=== PATIENT | male | born 1965 | race African-American/Black ===

== ENCOUNTER 2017-04-25 12:27 | Inpatient (IN) ==
[2017-04-25] MEDS ORDERED: DILTIAZEM 50 MG/10 ML VIAL IV ONE (13:09)
[2017-04-25] MEDS ORDERED: DILTIAZEM 50 MG/10 ML VIAL IV STA ×2 (13:10→14:06)
[2017-04-25 13:24] LABS: Basophils % 0.6 % (0.0-0.8); Eosinophils # 0.5 10*3/uL (0.0-0.87); Eosinophils % 7.2 % (0.00-10.9); Hematocrit 37.1 VOL% (42.0-52.0); Hemoglobin 12.3 GM/DL (14.0-18.0); Immature Granulocytes % 0.3 %; Immature Granulocytes Absolute 0.02 #; Lymphocytes # 1.2 10*3/uL (1.4-4.0); Lymphocytes % 16.5 % (21.2-54.2); Mean Corpuscular HGB Conc 33.2 GM/DL (32-36); Mean Corpuscular Hemoglobin 31 PG (27-34); Mean Corpuscular Volume 93.2 FL (87-102); Mean Platelet Volume 10.1 FL (9.6-12.0); Monocytes # 0.5 10*3/uL (0.11-0.8); Monocytes % 6.3 % (1.7-12.7); NRBC # 0.07 10*3/uL; Neutrophils # 4.9 10*3/uL (1.4-7.4); Neutrophils % 69.1 % (38.7-73.9); Platelet Count 150 T/CUMM (130-400); Red Blood Count 3.98 MC/CUMM (3.8-5.5); White Blood Count 7.1 T/CUMM (4-12)
[2017-04-25 13:35] LABS: PT Patient Result 10.7 SECS; Partial Thromboplastin Time 34.8 SECS (0-40)
[2017-04-25 13:43] LABS: Alanine Aminotransferase 36 U/L (16-61); Alkaline Phosphatase 70 U/L (45-117); Aspartate Amino Transferase 29 U/L (0-37); Blood Urea Nitrogen 29 MG/DL (7-18); Calcium 8.8 MG/DL (8.5-10.1); Glucose 105 MG/DL (74-106); Potassium 3.7 MMOL/L (3.5-5.1); Sodium 136 MMOL/L (136-145); Total Protein 9.5 G/DL (6.4-8.3); Troponin I Only 0.043 NG/ML (0.00-0.045)
[2017-04-25] MEDS ORDERED: DILTIAZEM 100 MG VIAL.ADD IV ONE (14:05)
[2017-04-25] MEDS ORDERED: SODIUM CHLORIDE 0.9% 100 ML IV ONE (14:06)
[2017-04-25] MEDS: DILTIAZEM INJ 100 MG in SODIUM CHLORIDE 0.9% 100 ML IV SCH (14:37)
[2017-04-25] MEDS ORDERED: FUROSEMIDE 40 MG/4 ML VIAL IV SCH (17:04)
[2017-04-25] MEDS ORDERED: ONDANSETRON 4 MG/2 ML VIAL IV PRN (17:04)
[2017-04-25] MEDS: DILTIAZEM CD 240 MG CAPSULE PO SCH (18:05)
[2017-04-25] MEDS: CALCITRIOL 0.5 MCG CAPSULE PO SCH (20:46)
[2017-04-26 04:49] LABS: Basophils % 0.8 % (0.0-0.8); Eosinophils # 0.4 10*3/uL (0.0-0.87); Eosinophils % 8.3 % (0.00-10.9); Hematocrit 32.4 VOL% (42.0-52.0); Hemoglobin 10.6 GM/DL (14.0-18.0); Immature Granulocytes % 0.6 %; Immature Granulocytes Absolute 0.03 #; Lymphocytes # 1.1 10*3/uL (1.4-4.0); Lymphocytes % 23.5 % (21.2-54.2); Mean Corpuscular HGB Conc 32.7 GM/DL (32-36); Mean Corpuscular Hemoglobin 31 PG (27-34); Mean Corpuscular Volume 94.7 FL (87-102); Mean Platelet Volume 10.1 FL (9.6-12.0); Monocytes # 0.5 10*3/uL (0.11-0.8); Monocytes % 10.2 % (1.7-12.7); NRBC # 0.02 10*3/uL; Neutrophils # 2.7 10*3/uL (1.4-7.4); Neutrophils % 56.6 % (38.7-73.9); Platelet Count 131 T/CUMM (130-400); Red Blood Count 3.42 MC/CUMM (3.8-5.5); White Blood Count 4.7 T/CUMM (4-12)
[2017-04-26 05:14] LABS: Calcium 7.5 MG/DL (8.5-10.1); Osmolality,Calculated 288.7 MOS/KG (273-304); Potassium 3.9 MMOL/L (3.5-5.1)
[2017-04-26] MEDS: DILTIAZEM CD 240 MG CAPSULE PO SCH (08:13)
[2017-04-26] MEDS: SEVELAMER CARBONATE 800 MG TABLET PO SCH ×3 (08:13→17:38)
[2017-04-26] MEDS: CALCIUM (CARBONATE)/VITAMIN D 600 MG-400 UNIT TABLET PO SCH (08:14)
[2017-04-26] MEDS: MULTIVITAMIN (BEROCCA) TABLET PO SCH (08:14)
[2017-04-26] MEDS: CARVEDILOL 3.125 MG TABLET PO SCH (08:14)
[2017-04-26] MEDS: CALCITRIOL 0.5 MCG CAPSULE PO SCH ×3 (08:14→22:45)
[2017-04-26] MEDS: PANTOPRAZOLE 40 MG TABLET PO SCH (08:14)
[2017-04-26] MEDS: FINASTERIDE 5 MG TABLET PO SCH (08:14)
[2017-04-26] MEDS: ALLOPURINOL 100 MG TABLET PO SCH (08:14)
[2017-04-26] MEDS: MULTIVITAMIN (CENTRUM) TABLET PO SCH (08:14)
[2017-04-26] MEDS: DILTIAZEM INJ 100 MG in SODIUM CHLORIDE 0.9% 100 ML IV SCH (14:36)
[2017-04-27 05:17] LABS: Basophils % 0.5 % (0.0-0.8); Eosinophils # 0.6 10*3/uL (0.0-0.87); Eosinophils % 10.1 % (0.00-10.9); Hematocrit 32.3 VOL% (42.0-52.0); Hemoglobin 10.9 GM/DL (14.0-18.0); Immature Granulocytes % 0.7 %; Immature Granulocytes Absolute 0.04 #; Lymphocytes # 1.5 10*3/uL (1.4-4.0); Lymphocytes % 24.6 % (21.2-54.2); Mean Corpuscular HGB Conc 33.7 GM/DL (32-36); Mean Corpuscular Hemoglobin 32 PG (27-34); Mean Corpuscular Volume 93.9 FL (87-102); Mean Platelet Volume 10.8 FL (9.6-12.0); Monocytes # 0.7 10*3/uL (0.11-0.8); Monocytes % 10.8 % (1.7-12.7); NRBC # 0.02 10*3/uL; Neutrophils # 3.2 10*3/uL (1.4-7.4); Neutrophils % 53.3 % (38.7-73.9); Platelet Count 147 T/CUMM (130-400); Red Blood Count 3.44 MC/CUMM (3.8-5.5); Red Cell Distribution Width 16.9 % (9.3-17.3)
[2017-04-27 05:46] LABS: Calcium 7.9 MG/DL (8.5-10.1); Osmolality,Calculated 287.1 MOS/KG (273-304); Potassium 3.8 MMOL/L (3.5-5.1)
[2017-04-27] MEDS ORDERED: PROMETHAZINE 25 MG/1 ML VIAL IM ONE (07:30)
[2017-04-27] MEDS ORDERED: MEPERIDINE 50 MG/1 ML VIAL IM ONE (07:30)
[2017-04-27] MEDS ORDERED: MIDAZOLAM 2 MG/2 ML VIAL ONE (07:30)
[2017-04-27] MEDS ORDERED: LIDOCAINE 1% 20 ML VIAL MISC INJ ONE (08:00)
[2017-04-27] MEDS ORDERED: LIDOCAINE 2% VISCOUS 100 ML BOTTLE SWISH/SPIT ONE (08:00)
[2017-04-27] MEDS ORDERED: LIDOCAINE 2% 20 ML VIAL RESP TX ONE (08:00)
[2017-04-27] MEDS ORDERED: MIDAZOLAM 2 MG/2 ML VIAL IV ONE (08:00)
[2017-04-27] MEDS: CARVEDILOL 3.125 MG TABLET PO SCH (10:03)
[2017-04-27] MEDS: SEVELAMER CARBONATE 800 MG TABLET PO SCH (10:03)
[2017-04-27] MEDS: DILTIAZEM CD 240 MG CAPSULE PO SCH (10:03)
[2017-04-27] MEDS: MULTIVITAMIN (BEROCCA) TABLET PO SCH (10:03)
[2017-04-27] MEDS: CALCIUM (CARBONATE)/VITAMIN D 600 MG-400 UNIT TABLET PO SCH (10:03)
[2017-04-27] MEDS: FINASTERIDE 5 MG TABLET PO SCH (10:04)
[2017-04-27] MEDS: ALLOPURINOL 100 MG TABLET PO SCH (10:04)
[2017-04-27] MEDS: MULTIVITAMIN (CENTRUM) TABLET PO SCH (10:04)
[2017-04-27] MEDS: PANTOPRAZOLE 40 MG TABLET PO SCH (10:04)
[2017-04-27] MEDS: CALCITRIOL 0.5 MCG CAPSULE PO SCH (10:04)
[2017-04-27 12:12] VITALS: BP 161/105
== END 2017-04-27 12:15 | disposition home or self-care (01) | DRG 308 ==
LOC: N.ED 12:27 → N.EDINP 14:14 → SUATTDRO 14:14 → N.TELES 15:50
PROVIDERS: ADMIT Internal Medicine; ATTEND Internal Medicine Geriatric Medicine

== ENCOUNTER 2017-08-02 21:28 | Inpatient (IN) ==
[2017-08-03] MEDS ORDERED: MORPHINE 2 MG/1 ML SYRINGE IV STA (00:25)
[2017-08-03] MEDS ORDERED: ONDANSETRON 4 MG/2 ML VIAL IV STA (00:25)
[2017-08-03] MEDS ORDERED: ONDANSETRON 4 MG/2 ML VIAL ONE (00:48)
[2017-08-03] MEDS ORDERED: MORPHINE 2 MG/1 ML SYRINGE ONE (00:48)
[2017-08-03 01:30] LABS: Basophils % 0.5 % (0.0-0.8); Eosinophils # 0.6 10*3/uL (0.0-0.87); Eosinophils % 8.2 % (0.00-10.9); Hematocrit 38.8 VOL% (42.0-52.0); Hemoglobin 13.3 GM/DL (14.0-18.0); Immature Granulocytes % 0.3 %; Immature Granulocytes Absolute 0.02 #; Lymphocytes # 1.7 10*3/uL (1.4-4.0); Mean Corpuscular HGB Conc 34.3 GM/DL (32-36); Mean Corpuscular Hemoglobin 32 PG (27-34); Mean Corpuscular Volume 92.4 FL (87-102); Monocytes # 0.7 10*3/uL (0.11-0.8); Monocytes % 9.1 % (1.7-12.7); Neutrophils # 4.3 10*3/uL (1.4-7.4); Neutrophils % 58.9 % (38.7-73.9); Platelet Count 189 T/CUMM (130-400); Red Cell Distribution Width 16.8 % (9.3-17.3); White Blood Count 7.3 T/CUMM (4-12)
[2017-08-03 01:35] LABS: PT Patient Result 10.7 SECS
[2017-08-03] MEDS ORDERED: ALBUTEROL/IPRATROPIUM 3 ML NEB RESP TX STA (01:53)
[2017-08-03 01:56] LABS: Albumin 3.8 G/DL (3.4-5.0); Calcium 7.7 MG/DL (8.5-10.1); Osmolality,Calculated 293.4 MOS/KG (273-304); Total Protein 8.8 G/DL (6.4-8.3); Troponin I Only 0.016 NG/ML (0.00-0.045)
[2017-08-03 02:00] LABS: Potassium 7.2 MMOL/L (3.5-5.1)
[2017-08-03] MEDS ORDERED: CALCIUM CHLORIDE 1,000 MG/10 ML SYRINGE IV STA (02:08)
[2017-08-03] MEDS ORDERED: ALBUTEROL NEB SOLN 5 MG/ML 20 ML/BOTTLE CONT NEB STA (02:09)
[2017-08-03] MEDS ORDERED: SODIUM POLYSTYRENE SULFATE 15 GM/60 ML BOTTLE PO STA (02:09)
[2017-08-03] MEDS ORDERED: CALCIUM CHLORIDE 1,000 MG/10 ML SYRINGE IV ONE (02:48)
[2017-08-03] MEDS ORDERED: SODIUM POLYSTYRENE SULFATE 15 GM/60 ML BOTTLE ONE (02:48)
[2017-08-03] MEDS ORDERED: DEXTROSE 50% 25 GM/50 ML VIAL IV PRN (03:38)
[2017-08-03] MEDS ORDERED: ONDANSETRON 4 MG/2 ML VIAL IV PRN (03:38)
[2017-08-03] MEDS ORDERED: GLUCAGON 1 MG VIAL IM PRN (03:38)
[2017-08-03] MEDS: HEPARIN 5,000 UNIT/1 ML VIAL SUBCUT SCH ×2 (06:20→14:12)
[2017-08-03 06:34] LABS: Calcium 8.3 MG/DL (8.5-10.1); Osmolality,Calculated 295.4 MOS/KG (273-304); Potassium 5.4 MMOL/L (3.5-5.1)
[2017-08-03] MEDS: INSULIN REGULAR 100 UNIT/ML SUBCUT SCH ×3 (07:32→16:47)
[2017-08-03] MEDS ORDERED: PANTOPRAZOLE 40 MG TABLET PO SCH (09:00)
[2017-08-03] MEDS ORDERED: DILTIAZEM CD 240 MG CAPSULE PO SCH (13:30)
[2017-08-03] MEDS ORDERED: CARVEDILOL 3.125 MG TABLET PO SCH (13:30)
[2017-08-03 16:47] VITALS: BP 128/93
[2017-08-03] MEDS ORDERED: CALCITRIOL 0.5 MCG CAPSULE PO SCH (21:00)
[2017-08-04] MEDS ORDERED: DILTIAZEM CD 240 MG CAPSULE PO SCH (09:00)
[2017-08-04] MEDS ORDERED: MULTIVITAMIN (CENTRUM) TABLET PO SCH (09:00)
[2017-08-04] MEDS ORDERED: CALCIUM (CARBONATE)/VITAMIN D 600 MG-400 UNIT TABLET PO SCH (09:00)
[2017-08-04] MEDS ORDERED: ALLOPURINOL 100 MG TABLET PO SCH (09:00)
[2017-08-04] MEDS ORDERED: MULTIVITAMIN (BEROCCA) TABLET PO SCH (09:00)
[2017-08-04] MEDS ORDERED: FINASTERIDE 5 MG TABLET PO SCH (09:00)
[2017-08-04] MEDS ORDERED: PANTOPRAZOLE 40 MG TABLET PO SCH (09:00)
[2017-08-04] MEDS ORDERED: CARVEDILOL 3.125 MG TABLET PO SCH (09:00)
== END 2017-08-03 18:37 | disposition home or self-care (01) | DRG 640 ==
LOC: N.ED 21:28 → N.EDINP 08-03 03:38 → N.4E 08-03 04:20
PROVIDERS: ADMIT Internal Medicine; ATTEND Internal Medicine

== ENCOUNTER 2019-01-10 05:47 | Inpatient (IN) ==
[2019-01-10 06:12] LABS: PT Patient Result 10.8 SECS; Partial Thromboplastin Time 28.8 SECS (0-40)
[2019-01-10 06:15] LABS: Basophils # 0.1 10*3/uL (0.0-0.2); Basophils % 0.6 % (0.0-0.8); Eosinophils # 0.3 10*3/uL (0.0-0.87); Eosinophils % 3.2 % (0.00-10.9); Hematocrit 29.6 VOL% (42.0-52.0); Hemoglobin 9.3 GM/DL (14.0-18.0); Immature Granulocytes % 0.4 %; Immature Granulocytes Absolute 0.04 #; Lymphocytes # 0.6 10*3/uL (1.4-4.0); Lymphocytes % 6.2 % (21.2-54.2); Mean Corpuscular HGB Conc 31.4 GM/DL (32-36); Mean Corpuscular Volume 96.1 FL (87-102); Mean Platelet Volume 10.7 FL (9.6-12.0); Monocytes % 6.8 % (1.7-12.7); Neutrophils % 82.8 % (38.7-73.9); Platelet Count 162 T/CUMM (130-400); Red Blood Count 3.08 MC/CUMM (3.8-5.5); Red Cell Distribution Width 15.4 % (9.3-17.3); White Blood Count 9.1 T/CUMM (4-12)
[2019-01-10] MEDS ORDERED: LABETALOL 100 MG/20 ML VIAL IV STA (06:27)
[2019-01-10 06:33] LABS: Hypochromasia 1+; Platelet Estimate Adequate
[2019-01-10 06:37] LABS: Albumin 3.6 G/DL (3.4-5.0); Bilirubin,Total 0.4 MG/DL (0.2-1.0); Calcium 7.6 MG/DL (8.5-10.1); Osmolality,Calculated 310.3 MOS/KG (273-304); Total Protein 8.9 G/DL (6.4-8.3)
[2019-01-10] MEDS ORDERED: PIPERACILLIN/TAZOBACTAM 3,375 MG in SODIUM CHLORIDE 0.9% 100 ML IV STA (06:45)
[2019-01-10] MEDS ORDERED: ONDANSETRON 4 MG/2 ML VIAL IV PRN (08:24)
[2019-01-10] MEDS ORDERED: ENOXAPARIN 40 MG/0.4 ML SYRINGE SUBCUT SCH (08:30)
[2019-01-10] MEDS ORDERED: MORPHINE 4 MG/1 ML VIAL IV STA (09:22)
[2019-01-10] MEDS: ALBUTEROL/IPRATROPIUM 3 ML NEB RESP TX SCH ×5 (11:59→23:20)
[2019-01-10] MEDS ORDERED: hydrALAZINE 20 MG/1 ML VIAL IV PRN (13:28)
[2019-01-10] MEDS: PANTOPRAZOLE 40 MG TABLET PO SCH (13:31)
[2019-01-10] MEDS: CARVEDILOL 3.125 MG TABLET PO SCH (13:31)
[2019-01-10] MEDS: DILTIAZEM CD 240 MG CAPSULE PO SCH (18:03)
[2019-01-10] MEDS: SEVELAMER CARBONATE 800 MG TABLET PO SCH (20:26)
[2019-01-10] MEDS ORDERED: ALBUTEROL 2.5 MG/3 ML NEB RESP TX ONE (21:02)
[2019-01-11] MEDS ORDERED: DILTIAZEM 25 MG/5 ML VIAL IV ONE ×2 (00:10→00:13)
[2019-01-11] MEDS: dilTIAZem Drip 125 MG/125 ML PREMIX IV SCH ×2 (00:27→09:07)
[2019-01-11] MEDS: ALBUTEROL/IPRATROPIUM 3 ML NEB RESP TX SCH ×6 (04:25→23:35)
[2019-01-11 06:07] LABS: Basophils # 0.1 10*3/uL (0.0-0.2); Basophils % 0.8 % (0.0-0.8); Eosinophils # 0.2 10*3/uL (0.0-0.87); Eosinophils % 3.3 % (0.00-10.9); Hematocrit 25.5 VOL% (42.0-52.0); Hemoglobin 7.8 GM/DL (14.0-18.0); Immature Granulocytes % 0.7 %; Immature Granulocytes Absolute 0.04 #; Lymphocytes # 0.7 10*3/uL (1.4-4.0); Lymphocytes % 11.3 % (21.2-54.2); Mean Corpuscular HGB Conc 30.6 GM/DL (32-36); Mean Corpuscular Volume 98.5 FL (87-102); Mean Platelet Volume 10.5 FL (9.6-12.0); Monocytes % 14.5 % (1.7-12.7); Neutrophils % 69.4 % (38.7-73.9); Platelet Count 146 T/CUMM (130-400); Red Blood Count 2.59 MC/CUMM (3.8-5.5); Red Cell Distribution Width 15.8 % (9.3-17.3); White Blood Count 6.1 T/CUMM (4-12)
[2019-01-11 06:24] LABS: Troponin I 0.073 NG/ML (0.00-0.045)
[2019-01-11 06:29] LABS: Calcium 7.9 MG/DL (8.5-10.1); Osmolality,Calculated 299.7 MOS/KG (273-304); Risk Ratio 5.16; Thyroid Stimulating Hormone 2.86 uIU/ml (0.358-3.74); VLDL CHOLESTEROL 52.4 MG/DL
[2019-01-11] MEDS ORDERED: CARVEDILOL 3.125 MG TABLET PO SCH (09:00)
[2019-01-11] MEDS: CARVEDILOL 3.125 MG TABLET PO SCH (09:11)
[2019-01-11] MEDS: ALLOPURINOL 100 MG TABLET PO SCH (09:11)
[2019-01-11] MEDS: SEVELAMER CARBONATE 800 MG TABLET PO SCH ×3 (09:11→16:00)
[2019-01-11] MEDS: PANTOPRAZOLE 40 MG TABLET PO SCH (09:11)
[2019-01-11] MEDS: MULTIVITAMIN (BEROCCA) TABLET PO SCH (09:11)
[2019-01-11] MEDS: NICOTINE 14 MG/24 HR PATCH TRANSDERM SCH (09:12)
[2019-01-11] MEDS: DILTIAZEM CD 240 MG CAPSULE PO SCH (09:12)
[2019-01-11] MEDS: PIPERACILLIN/TAZOBACTAM 3,375 MG in SODIUM CHLORIDE 0.9% 100 ML IV SCH ×3 (09:13→23:55)
[2019-01-11] MEDS ORDERED: ALUMINUM/MAGNES/SIMETH MAX STR 30 ML UDCUP PO PRN (13:26)
[2019-01-11] MEDS ORDERED: ENOXAPARIN 30 MG/0.3 ML SYRINGE SUBCUT SCH (13:30)
[2019-01-11] MEDS: AMIODARONE 200 MG TABLET PO SCH ×2 (15:46→20:52)
[2019-01-11] MEDS: APIXABAN 2.5 MG TABLET PO SCH ×2 (15:46→20:52)
[2019-01-11] MEDS: INSULIN REGULAR 100 UNIT/ML SUBCUT SCH ×2 (17:15→20:55)
[2019-01-11] MEDS: ATORVASTATIN 40 MG TABLET PO SCH (20:52)
[2019-01-12] MEDS: ALBUTEROL/IPRATROPIUM 3 ML NEB RESP TX SCH ×5 (03:00→19:38)
[2019-01-12 05:03] LABS: Calcium 8.3 MG/DL (8.5-10.1); Thyroid Stimulating Hormone 3.08 uIU/ml (0.358-3.74)
[2019-01-12] MEDS: dilTIAZem Drip 125 MG/125 ML PREMIX IV SCH (05:12)
[2019-01-12] MEDS: INSULIN REGULAR 100 UNIT/ML SUBCUT SCH ×4 (09:19→20:51)
[2019-01-12] MEDS: ALLOPURINOL 100 MG TABLET PO SCH (09:38)
[2019-01-12] MEDS: SEVELAMER CARBONATE 800 MG TABLET PO SCH ×3 (09:38→17:55)
[2019-01-12] MEDS: MULTIVITAMIN (BEROCCA) TABLET PO SCH (09:38)
[2019-01-12] MEDS: NICOTINE 14 MG/24 HR PATCH TRANSDERM SCH (09:38)
[2019-01-12] MEDS: APIXABAN 2.5 MG TABLET PO SCH ×2 (09:39→20:51)
[2019-01-12] MEDS: CARVEDILOL 3.125 MG TABLET PO SCH ×3 (09:39→17:55)
[2019-01-12] MEDS: PANTOPRAZOLE 40 MG TABLET PO SCH (09:39)
[2019-01-12] MEDS: AMIODARONE 200 MG TABLET PO SCH ×2 (09:39→20:51)
[2019-01-12] MEDS: DILTIAZEM CD 240 MG CAPSULE PO SCH (09:39)
[2019-01-12] MEDS: PIPERACILLIN/TAZOBACTAM 3,375 MG in SODIUM CHLORIDE 0.9% 100 ML IV SCH ×2 (12:27→23:06)
[2019-01-12] MEDS: ATORVASTATIN 40 MG TABLET PO SCH (20:51)
[2019-01-12] MEDS ORDERED: traMADol 50 MG TABLET PO ONE (21:52)
[2019-01-12] MEDS: BENZONATATE 100 MG CAPSULE PO SCH (22:00)
[2019-01-13] MEDS: ALBUTEROL/IPRATROPIUM 3 ML NEB RESP TX SCH ×7 (00:06→22:53)
[2019-01-13] MEDS: dilTIAZem Drip 125 MG/125 ML PREMIX IV SCH (01:29)
[2019-01-13 05:10] LABS: Basophils % 0.5 % (0.0-0.8); Eosinophils # 0.6 10*3/uL (0.0-0.87); Eosinophils % 9.4 % (0.00-10.9); Hematocrit 24.6 VOL% (42.0-52.0); Hemoglobin 7.9 GM/DL (14.0-18.0); Immature Granulocytes % 0.3 %; Immature Granulocytes Absolute 0.02 #; Lymphocytes # 1.1 10*3/uL (1.4-4.0); Lymphocytes % 18.3 % (21.2-54.2); Mean Corpuscular HGB Conc 32.1 GM/DL (32-36); Mean Corpuscular Volume 94.6 FL (87-102); Mean Platelet Volume 11.1 FL (9.6-12.0); Monocytes % 11.4 % (1.7-12.7); Neutrophils % 60.1 % (38.7-73.9); Platelet Count 164 T/CUMM (130-400); Red Cell Distribution Width 15.1 % (9.3-17.3); White Blood Count 6.1 T/CUMM (4-12)
[2019-01-13 05:52] LABS: Calcium 7.8 MG/DL (8.5-10.1); Osmolality,Calculated 294.8 MOS/KG (273-304); Thyroid Stimulating Hormone 2.96 uIU/ml (0.358-3.74)
[2019-01-13] MEDS ORDERED: traMADol 50 MG TABLET PO ONE (08:16)
[2019-01-13] MEDS: INSULIN REGULAR 100 UNIT/ML SUBCUT SCH ×4 (08:33→22:05)
[2019-01-13] MEDS ORDERED: EPOETIN ALFA 10,000 UNIT/1 ML VIAL IV PRN (08:42)
[2019-01-13] MEDS: AMIODARONE 200 MG TABLET PO SCH ×2 (08:52→20:40)
[2019-01-13] MEDS: BENZONATATE 100 MG CAPSULE PO SCH ×2 (08:52→20:41)
[2019-01-13] MEDS: SEVELAMER CARBONATE 800 MG TABLET PO SCH ×3 (08:52→17:24)
[2019-01-13] MEDS: ALLOPURINOL 100 MG TABLET PO SCH (08:52)
[2019-01-13] MEDS: DILTIAZEM CD 240 MG CAPSULE PO SCH (08:52)
[2019-01-13] MEDS: NICOTINE 14 MG/24 HR PATCH TRANSDERM SCH (08:53)
[2019-01-13] MEDS: PANTOPRAZOLE 40 MG TABLET PO SCH (08:53)
[2019-01-13] MEDS: APIXABAN 2.5 MG TABLET PO SCH ×2 (08:53→20:41)
[2019-01-13] MEDS: CARVEDILOL 3.125 MG TABLET PO SCH ×3 (08:53→16:17)
[2019-01-13] MEDS: MULTIVITAMIN (BEROCCA) TABLET PO SCH (08:53)
[2019-01-13] MEDS ORDERED: CARVEDILOL 3.125 MG TABLET PO ONE (11:41)
[2019-01-13] MEDS: PIPERACILLIN/TAZOBACTAM 3,375 MG in SODIUM CHLORIDE 0.9% 100 ML IV SCH (12:16)
[2019-01-13] MEDS: ATORVASTATIN 40 MG TABLET PO SCH (20:41)
[2019-01-14] MEDS: PIPERACILLIN/TAZOBACTAM 3,375 MG in SODIUM CHLORIDE 0.9% 100 ML IV SCH ×2 (00:37→15:09)
[2019-01-14] MEDS: ALBUTEROL/IPRATROPIUM 3 ML NEB RESP TX SCH ×3 (02:34→11:15)
[2019-01-14] MEDS: INSULIN REGULAR 100 UNIT/ML SUBCUT SCH ×2 (09:23→12:32)
[2019-01-14] MEDS: CARVEDILOL 3.125 MG TABLET PO SCH (09:24)
[2019-01-14] MEDS: AMIODARONE 200 MG TABLET PO SCH (09:24)
[2019-01-14] MEDS: APIXABAN 2.5 MG TABLET PO SCH (09:24)
[2019-01-14] MEDS: ALLOPURINOL 100 MG TABLET PO SCH (09:24)
[2019-01-14] MEDS: MULTIVITAMIN (BEROCCA) TABLET PO SCH (09:24)
[2019-01-14] MEDS: BENZONATATE 100 MG CAPSULE PO SCH (09:24)
[2019-01-14] MEDS: SEVELAMER CARBONATE 800 MG TABLET PO SCH ×2 (09:24→15:39)
[2019-01-14] MEDS: NICOTINE 14 MG/24 HR PATCH TRANSDERM SCH (09:25)
[2019-01-14] MEDS: PANTOPRAZOLE 40 MG TABLET PO SCH (09:25)
[2019-01-14] MEDS: DILTIAZEM CD 240 MG CAPSULE PO SCH (09:32)
[2019-01-14 15:42] VITALS: BP 121/87
== END 2019-01-14 16:05 | disposition home or self-care (01) | DRG 291 ==
LOC: EDBD → EDUNIT# → N.ED 05:47 → N.EDINP 08:21 → SUATTDRO 08:21 → N.EDINP 12:00 → N.2E 12:10 → N.ICU 23:34 → N.5E 01-13 18:55
PROVIDERS: ADMIT Internal Medicine; ATTEND Internal Medicine